=== PATIENT | male | born 1950 ===

== ENCOUNTER 2023-09-05 10:08 | Emergency (ER) | payer OTHER, SELFPAY ==
--- NOTE | 2023-09-05 10:21 | ED.GENADULT ---
HPI - General Adult General Chief complaint: Eye Problems Stated complaint: needs eye looked at Time Seen by Provider: 09/05/23 10:21 Source: patient, RN notes reviewed and old records reviewed Mode of arrival: Ambulatory Limitations: no limitations History of Present Illness HPI narrative: 73-year-old male with history of hypertension, cardiac arrhythmia and pacemaker who had a WednesdayAugust 30. Patient states he would gotten up from the bathroom he has been constipated had pain in his abdomen fell and the right side of his face and I. Patient states he was not knocked out. He has some abrasion and bruising around the eye quite a bit of swelling of the lid underneath. He states he has had some very mild changes with fine print to vision but otherwise no changes. He denies any pain except with palpation. Patient states no difficulty with movement of his eye. Denies loss of consciousness, patient states he may have had less than a minute. Has not had any alterations in mental status. Denies any other symptoms. Denies any aspirin, Plavix or other thinners. Denies any neck or back pain. No chest pain or shortness of breath. States he has since had a bowel movement in his abdominal symptoms have resolved. He has not had any nausea or vomiting no other GI or urinary symptoms. Patient wears glasses but was not wearing them when he fell. Tetanus Patient presents today after his encouraged him to come as he has quite a bit of swelling. Patient had goiter for prior surgery. Uses tobacco, 1 alcoholic drink daily, no recreational drugs. Related Data Allergies Allergy/AdvReac Type Severity Reaction Status Date / Time No Known Drug Allergies Allergy Verified 09/05/23 12:19 Review of Systems Review of Systems ROS Unobtainable: All systems reviewed & are unremarkable except as noted in HPI and below Patient History Social History Smoking Status: Former smoker Exam Narrative Exam Narrative: GEN: Patient appears in mild distress. HEAD: No evidence of trauma other than below. no Maldonado sign, positive for right periorbital ecchymosis. NECK: Nontender, painless range of motion, trachea midline Negative Nexus criteria, there is no midline line tenderness, distracting injury, altered mental status, neuro deficit, recent EtOH. EYES: PERRLA, EOMI Visual acuity: right [20/30], left [20/25] without correction, patient is 20/70 bilaterally uncorrected. General: no globe trauma Eyelids: See below. Conjunctiva/Sclera: normal inspection, no ecchymosis Corneas: normal inspection EOM: intact, no palsy/entrapment Pupils: PERRL, normal accomadation, pupil normal Anterior Chambers: normal inspection, no hypema Posterior: normal fundoscopic bilaterally. ENT: Patient has a abrasion right anterior scalp, he has ecchymosis periorbital on the right with quite a bit of swelling and no induration or hematoma palpated but feels almost like a blister of the lower lid., patient has some mild tenderness around the orbit at the upper edge., trachea is midline, TM's are normal no hemotypanum, Nares are clear, no septal hematoma, no dental or oral injury, airway is normal and with normal occlusion, No bony tenderness RESP: Chest is nontender and has symmetric movement, no ecchymosis, breath sounds are normal no crackles, wheezes or rales CVS: Heart sounds are normal, no murmur noted, No JVD. ABG/GI: Nontender, soft, normal bowel sounds, no distention, no organomegaly, pelvic rock is negative NEURO: Oriented AOx3, neuro is grossly intact, sensation and motor is normal all 4 extremities moving, cranial nerves II through XII are intact, GCS is 15 PSYCH: Normal mood and affect SKIN: Intact, warm and dry, no crepitus and without decubitus BACK: No CVA tenderness, no vertebral tenderness, no step-off's, no crepitus EXT: Atraumatic, hips are nontender, no pedal edema, normal color and temperature, normal range of motion of extremities with normal tendon exam, 2+ pulses in all four extremities Initial Vital Signs Initial Vital Signs: Vital Signs Temperature 98.7 F 09/05/23 10:23 Pulse Rate 59 L 09/05/23 10:23 Respiratory Rate 16 09/05/23 10:23 Blood Pressure 121/76 09/05/23 10:23 Pulse Oximetry 100 09/05/23 10:23 Oxygen Delivery Method Room Air 09/05/23 10:[address] Head Rule Age greater or equal to 65 years: Yes GCS Sasser coma scale eye opening: Spontaneous Sasser coma scale verbal response: Orientated Sasser coma scale motor response: Obey commands Sasser coma scale total score: 15 Nexus Score for C-Spine Focal Neurologic deficit present: No Midline spinal tenderness present: No Altered level of conciousness present: No Intoxication present: No Distracting Injury Present: No Nexus Criteria for C-spine: 0 Course Orders Ordered: ED Orders 09/05/23 10:26 CT facial bones wo con Stat CT head/brain wo con Stat Vital Signs Vital signs: Vital Signs - 8 hr 09/05/23 10:23 09/05/23 12:19 Temperature 98.7 F Pulse Rate 59 L 63 Respiratory Rate 16 16 Blood Pressure 121/76 116/72 Pulse Oximetry 100 98 Oxygen Delivery Method Room Air Room Air Medical Decision Making Imaging Data CT scan - head: Radiologist's Impression: [address] [address] [address] Scan Report Signed Patient: Esau Gutierrez MR#: [id number] : 1950 Acct:[id number] Age/Sex: 73 / M Date of Service: 09/05/23 Loc: ED Accession Number: [id number] Procedure: CT head/brain wo con Ordering Provider: Krista Parekh D.O. PROCEDURE: CT HEAD/BRAIN WO CON INDICATIONS: fall, last wednesday, swelling eccymosis right eye TECHNIQUE: Noncontrast 4.5 mm thick angled axial sections acquired from the foramen magnum to the vertex, with coronal and sagittal reformats. For radiation dose reduction, the following was used: automated exposure control, adjustment of mA and/or kV according to patient size. COMPARISON: None. FINDINGS: Image quality: Diagnostic. CSF spaces: Basal cisterns are patent. No extra-axial fluid collections. Ventricles are normal in size and shape. Brain: No midline shift. No intracranial masses or hemorrhage. Perez-white matter interface is normal. Skull and face: Calvarium and visualized facial bones are intact, without suspicious lesions. Right periorbital soft tissue swelling Sinuses: Visualized sinuses and mastoids are clear. IMPRESSION: Atrophy and chronic ischemic change without intracranial hemorrhage or mass effect. Approved by: Clovis Jacobson M.D. on 09/05/2023 at 10:44 CT facial bones: Radiologist's Impression: [address] [address] [address] Scan Report Signed Patient: Esau Gutierrez MR#: [id number] : 1950 Acct:[id number] Age/Sex: 73 / M Date of Service: 09/05/23 Loc: ED Accession Number: [id number] Procedure: CT facial bones wo con Ordering Provider: Krista Parekh D.O. PROCEDURE: CT FACIAL BONES WO CON INDICATIONS: fall, last wednesday, swelling eccymosis right eye TECHNIQUE: Noncontrast 2.5 mm thick axial images acquired from the mandible through the frontal sinuses, with coronal and sagittal reformatting. For radiation dose reduction, the following was used: automated exposure control, adjustment of mA and/or kV according to patient size. COMPARISON: None. FINDINGS: Maxillofacial Bones: The zygomaticomaxillary complex is intact. The pterygoid plates and skull base are unremarkable. No evidence of fracture or lytic lesion. Mandible: The mandible is intact without fracture. Unremarkable temporomandibular articulation. Dentition: Unremarkable mandibular and maxillary dentition. Soft tissues: Right periorbital soft tissue swelling Orbits: The osseous orbits, globes and ocular muscles unremarkable. Sinuses and Mastoid: Mucosal thickening noted along the floor both maxillary sinuses measure up to 9 mm. Associated retention cysts noted as well. IMPRESSION: Right periorbital soft tissue swelling without evidence of orbital fracture or ocular injury. Bilateral maxillary mucosal sinus disease Approved by: Clovis Jacobson M.D. on 09/05/2023 at 10:40 MDM Narrative Medical decision making narrative: 73-year-old male with ground level fall with reported loss of consciousness 5 days ago. Patient has periorbital ecchymosis with quite a bit of swelling of the lower lid but appears to be more edema than hematoma. Patient does have some tenderness around the orbit, visual acuity shows a mild change right compared to left with glasses and slightly more obvious without glasses. Patient states he notices a very mild change with fine print. He states he follows with floor covering printer assistant or apartment community manager. Head CT and CT facial bones to rule out bleed or orbital fracture. Patient has not had any new or worsening bruising or bleeding but they note that the swelling has been persistent and has not really decreased. Head CT is negative for acute bleed or change CT facial bone, no fracture or acute bleed, rate periorbital soft tissue swelling without evidence of orbital fracture ocular injury, bilateral maximum mucosal sinus disease. Plan to have patient follow up with Ophthalmology, he states he needs to have new glasses anyway. Patient exam otherwise is reassuring, discussed time, return precautions. Discharge Plan Departure Patient Disposition: Home Clinical Impression: Periorbital ecchymosis of right eye Activity Restrictions/Additional Instructions: Your imaging does not show any bleeding in your brain, breaks or fractures of the bone or your face or skull. There is swelling and bruising around the right eye. Please follow up with Ophthalmology for recheck. You had very small amount of change right compared to left on your eye exam. Please return for increasing bruising, swelling, redness or warmth, sudden changes to vision, severe headaches, new numbness tingling or weakness or other new or concerning changes. Referrals: Dawna Hammer MD [Physician] - Stand Alone Forms: Patient Portal/API
[2023-09-05 10:23] VITALS: BP 121/76; PULSE 59; RESP 16; TEMP 37.1; O2SAT 100; BMI 26.9
--- NOTE | 2023-09-05 10:26 | DI.CT.S_ITS ---
PROCEDURE: CT FACIAL BONES WO CON INDICATIONS: fall, last marcy, swelling eccymosis right eye TECHNIQUE: Noncontrast 2.5 mm thick axial images acquired from the mandible through the frontal sinuses, with coronal and sagittal reformatting. For radiation dose reduction, the following was used: automated exposure control, adjustment of mA and/or kV according to patient size. COMPARISON: None. FINDINGS: Maxillofacial Bones: The zygomaticomaxillary complex is intact. The pterygoid plates and skull base are unremarkable. No evidence of fracture or lytic lesion. Mandible: The mandible is intact without fracture. Unremarkable temporomandibular articulation. Dentition: Unremarkable mandibular and maxillary dentition. Soft tissues: Right periorbital soft tissue swelling Orbits: The osseous orbits, globes and ocular muscles unremarkable. Sinuses and Mastoid: Mucosal thickening noted along the floor both maxillary sinuses measure up to 9 mm. Associated retention cysts noted as well. IMPRESSION: Right periorbital soft tissue swelling without evidence of orbital fracture or ocular injury. Bilateral maxillary mucosal sinus disease Approved by: Clovis Jacobson M.D. on 09/05/2023 at 10:40
--- NOTE | 2023-09-05 10:26 | DI.CT.S_ITS ---
PROCEDURE: CT HEAD/BRAIN WO CON INDICATIONS: fall, last wednesday, swelling eccymosis right eye TECHNIQUE: Noncontrast 4.5 mm thick angled axial sections acquired from the foramen magnum to the vertex, with coronal and sagittal reformats. For radiation dose reduction, the following was used: automated exposure control, adjustment of mA and/or kV according to patient size. COMPARISON: None. FINDINGS: Image quality: Diagnostic. CSF spaces: Basal cisterns are patent. No extra-axial fluid collections. Ventricles are normal in size and shape. Brain: No midline shift. No intracranial masses or hemorrhage. Perez-white matter interface is normal. Skull and face: Calvarium and visualized facial bones are intact, without suspicious lesions. Right periorbital soft tissue swelling Sinuses: Visualized sinuses and mastoids are clear. IMPRESSION: Atrophy and chronic ischemic change without intracranial hemorrhage or mass effect. Approved by: Clovis Jacobsno M.D. on 09/05/2023 at 10:44
--- NOTE | 2023-09-05 12:18 | PC.NURSE ---
pt has a small abrasion above right eye.
[2023-09-05 12:19] VITALS: BP 116/72; PULSE 63; RESP 16; O2SAT 98
== END 2023-09-05 12:20 | disposition home or self-care (01) ==
PROVIDERS: Emergency Provider Emergency Medicine
DX: S00.11XA Contusion of right eyelid and periocular area, initial encounter (principal); H53.9 Unspecified visual disturbance; S00.01XA Abrasion of scalp, initial encounter; W18.30XA Fall on same level, unspecified, initial encounter; Z95.0 Presence of cardiac pacemaker
CPT/HCPCS: 70450; 70486; 99283; 99284

== ENCOUNTER 2023-10-18 11:06 | Emergency (ER) | payer MEDICARE, SELFPAY ==
[2023-10-18 11:27] VITALS: BP 141/92; PULSE 67; RESP 16; TEMP 36.1; O2SAT 99; BMI 26.9
[2023-10-18 12:24] VITALS: BP 135/89; PULSE 63; RESP 16; O2SAT 99
--- NOTE | 2023-10-18 16:46 | ED_ITS ---
HPI - Skin/Abscess/Foreign Bdy <Valeri Cox PA-C - Last Filed: 10/18/23 16:51> General Chief complaint: Skin/Abscess/Foreign Body Stated complaint: Rash On butt, Lower left leg pain Wrist pain Time Seen by Provider: 10/18/23 12:05 Source: patient Mode of arrival: Ambulatory History of Present Illness HPI narrative: 73-year-old male presents to the ED with a rash on the left buttock. Patient states that this rash has been recurring over the past 20 years, however does not last as long as it has this time around. Patient describes the rash is itchy. Patient states he has been putting alcohol and hydrogen peroxide on it to get rid of it. Denies fever, chills, nausea, vomiting Related Data Previous Rx's Medication Instructions Recorded triamcinolone acetonide 0.025 % 1 applic topical TID #15 grams 10/18/23 topical ointment valacyclovir 1 gram tablet 1,000 mg PO Q8H 7 days #21 tabs 10/18/23 Allergies Allergy/AdvReac Type Severity Reaction Status Date / Time No Known Drug Allergies Allergy Verified 10/18/23 11:27 Review of Systems <Valeri Cox PA-C - Last Filed: 10/18/23 16:51> Constitutional Constitutional: Denies chills, Denies fatigue, Denies fever(s), Denies frequent falls, Denies lethargy and Denies weakness Eyes Eyes: Denies change in vision, Denies eye discharge, Denies irritation and Denies loss of vision ENT Ears, Nose, Mouth, and Throat: Denies change in voice, Denies dizziness, Denies neck pain, Denies sore throat and Denies throat swelling Cardiovascular Cardiovascular: Denies chest pain, Denies irregular heart rhythm, Denies lightheadedness, Denies palpitations, Denies dyspnea, Denies dyspnea on exertion and Denies orthopnea Respiratory Respiratory: Denies cough, Denies dyspnea, Denies dyspnea on exertion and Denies wheezing Gastrointestinal Gastrointestinal: Denies abdominal pain, Denies change in bowel habits, Denies diarrhea, Denies nausea and Denies vomiting Musculoskeletal Musculoskeletal: Denies neck pain and Denies numbness Integumentary/Breasts Skin/Breast: Denies pruritus, Denies erythema, Reports rash and Denies wounds Neurologic Neurologic: Denies behavioral changes, Denies confusion, Denies dizziness, Denies frequent falls, Denies loss of vision, Denies numbness and Denies weakness Psychiatric Psychiatric: Denies anxiety, Denies behavioral changes, Denies confusion, Denies depression, Denies homicidal ideation and Denies suicidal ideation Endocrine Endocrine: Denies fatigue, Denies flushing and Denies palpitations Hematologic/Lymphatic Hematologic/Lymphatic: Denies easy bruising Allergic/Immunologic Allergic/Immunologic: Denies urticaria, Denies throat swelling and Denies wheezing Patient History <Valeri Cox PA-C - Last Filed: 10/18/23 16:51> Social History Smoking Status: Former smoker Smoking Status: Former smoker tobacco type: cigarettes alcohol intake frequency: 0-2 drinks per day Substance Use Type: does not use Exam <Valeri Cox PA-C - Last Filed: 10/18/23 16:51> Narrative Exam Narrative: Const General:?cooperative, healthy appearing and comfortable [facility] Head:?normal to inspection Ears:?hearing grossly normal bilaterally Nose:?external nose normal Face and sinus:?normal facial exam and sinuses nontender Mouth:?oral mucosae normal Throat:?posterior oropharynx normal Eyes General:?appearance normal, both eyes and all related structures Neck Neck:?normal visual inspection and no lymphadenopathy noted Resp Effort & Inspection:?normal respiratory effort Auscultation:?clear to auscultation bilaterally Cardio Rate:?regular rate Rhythm:?regular rhythm Integumentary Discrete, erythematous, vesicular rash on the left buttock. Suspicious for shingles versus atopic dermatitis. No superimposed bacterial infection Neuro General:?patient alert, patient awake and patient oriented x3 Initial Vital Signs Initial Vital Signs: Vital Signs Temperature 97.0 F L 10/18/23 11:27 Pulse Rate 67 10/18/23 11:27 Respiratory Rate 16 10/18/23 11:27 Blood Pressure 141/92 H 10/18/23 11:27 Pulse Oximetry 99 10/18/23 11:27 Oxygen Delivery Method Room Air 10/18/23 11:27 <Ana Maria Anand MD - Last Filed: 10/19/23 14:51> Initial Vital Signs Initial Vital Signs: Vital Signs Temperature 97.0 F L 10/18/23 11:27 Pulse Rate 67 10/18/23 11:27 Respiratory Rate 16 10/18/23 11:27 Blood Pressure 141/92 H 10/18/23 11:27 Pulse Oximetry 99 10/18/23 11:27 Oxygen Delivery Method Room Air 10/18/23 11:27 Course <Valeri Cox PA-C - Last Filed: 10/18/23 16:51> Vital Signs Vital signs: Vital Signs - 8 hr 10/18/23 11:27 10/18/23 12:24 Temperature 97.0 F L Pulse Rate 67 63 Respiratory Rate 16 16 Blood Pressure 141/92 H 135/89 Pulse Oximetry 99 99 Oxygen Delivery Method Room Air Room Air <Ana Maria Anand MD - Last Filed: 10/19/23 14:51> Vital Signs Vital signs: Vital Signs - 8 hr 10/18/23 11:27 10/18/23 12:24 Temperature 97.0 F L Pulse Rate 67 63 Respiratory Rate 16 16 Blood Pressure 141/92 H 135/89 Pulse Oximetry 99 99 Oxygen Delivery Method Room Air Room Air MDM - Skin/Abscess/Foreign Bdy <Valeri Cox PA-C - Last Filed: 10/18/23 16:51> MDM Narrative Medical decision making narrative: 73-year-old male presents to the ED with a rash on the left buttock. Concern f or shingles versus atopic dermatitis versus other. Prescribed valacyclovir and topical steroid. Recommend not using peroxide or alcohol on the skin. Recommend follow-up with dermatology. Patient does have a dermatology appointment in November. ED return precautions discussed with patient. Patient verbalized understanding. Medical records reviewed: Yes Discharge Plan Departure Patient Disposition: Home Clinical Impression: Shingles rash Qualifiers: Herpes zoster complications: without complications Qualified Code(s): B02.9 - Zoster without complications Instructions: DI for Shingles Activity Restrictions/Additional Instructions: You were evaluated in the ED today for a rash, which seems most consistent with a shingles infection. You are being prescribed antivirals to take for a week and a steroid ointment to apply to the rash. Please also follow-up with a health plan advisor as you have scheduled currently. Return to the ED if you have worsening symptoms. Prescriptions: New valacyclovir 1 gram tablet 1,000 mg PO Q8H 7 Days Qty: 21 0RF triamcinolone acetonide 0.025 % ointment 1 applic topical TID Qty: 15 0RF Referrals: Miscellaneous,Doctor, [Primary Care Provider] - Stand Alone Forms: Patient Portal/API ED Sign-out <Ana Maria Anand MD - Last Filed: 10/19/23 14:51> Cosign ED Attending Cosignature Attestation: I was immediately available in the department for consultation throughout this patient's visit. Ana Maria Anand MD
== END 2023-10-18 12:25 | disposition home or self-care (01) ==
PROVIDERS: Emergency Provider Student in an Organized Health Care Education/Training Program
DX: B02.9 Zoster without complications (principal)
CPT/HCPCS: 99281; 99283